=== PATIENT | female | born 1995 | race Caucasian/White ===

== ENCOUNTER 2018-03-19 11:45 | Emergency (ER) | payer BC ==
[2018-03-19 13:09] LABS: Bilirubin Negative (Negative); Blood, Urine Small (Negative); Clarity CLOUDY (Clear); Glucose, Urine (Dipstick) Negative (Negative); Leukocyte Small (Negative); Nitrite Negative (Negative); Protein, Urine (Dipstick) Negative (Neg-Trace); Specific Gravity, Urine 1.024 (1.002-1.036); pH, Urine 6.5 (5.0-9.0)
[2018-03-19 13:12] LABS: Bacteria/HPF None Seen HPF (None Seen); Hyaline Casts/LPF 4-6 HYALINE CAST LPF (0-3 Hyaline); RBC/HPF 0-3 HPF (0-3)
[2018-03-19 13:27] LABS: Renal Epithelial 0-3 HPF (0-3); Transitional Epithelial 0-3 HPF (0-3)
--- NOTE | 2018-03-19 14:27 | ULT ---
LIMITED OB ULTRASOUND: DATE: 03/19/18. HISTORY: The patient presents with vaginal pain and vaginal bleeding. Beta HCG level not available. FINDINGS: The uterus measures 9.7 cm x 4.9 cm x 6 cm. There is a fluid collection seen within the endometrial canal which contains both a pole and a yolk sac. Cardiac Doppler does demonstrate heart tones with a heart rate of 108 b.p.m. The crown-rump length measures 0.31 cm, consistent with gestational age by ultrasound of 5 weeks and 6 days. Gestational age by the last menstrual period is 7 weeks and 3 days. The ovaries demonstrate a normal sonographic appearance bilaterally. The right ovary measures 2.9 cm x 1.5 cm x 1.7 cm. With the left ovary measuring 3.3 cm x 1.8 cm x 1.9 cm. Doppler evaluation of ea ch ovary with spectral analysis and color flow evaluation demonstrates venous flow within each ovary with arterial flow seen in the left ovary. Arterial flow in the right ovary is difficult to elicit. No free fluid is seen in the cul-de-sac. IMPRESSION: Single intrauterine gestation with heart tones documented. Gestational age by measurement of t he crown-rump length is 5 weeks and 6 days. Gestational age by the last menstrual period is 7 weeks and 3 days. POS: [facility]
[2018-03-20 20:59] LABS: Chlamydia by PCR Not Detected (NotDetected); GC by PCR DETECTED (NotDetected)
== END 2018-03-19 14:35 | disposition home or self-care (01) ==
LOC: ERS 11:45
DX: O20.0 Threatened abortion (principal); O23.591 Infection of other part of genital tract in pregnancy, first trimester
CPT/HCPCS: 36415; 76815; 81003; 81015; 84702; 86900; 86901; 87086; 87480; 87491; 87510; 87591; 87660

== ENCOUNTER 2018-03-21 16:31 | Emergency (ER) | payer BC ==
[2018-03-21] MEDS ORDERED: cefTRIAXone\\ROCEPHIN 250 MG VIAL ONE (19:12)
[2018-03-21] MEDS ORDERED: Lidocaine 1% PF 5 ML VIAL ONE (19:13)
[2018-03-21] MEDS ORDERED: Azithromycin 250 MG TAB ONE (19:16)
[2018-03-21 19:34] LABS: #Eosinphils 0.1 thou/uL (0.0-0.7); #Lymphocytes 1.6 thou/uL (1.20-3.40); #Monocytes 0.4 thou/uL (0.11-0.59); #Neutrophils 4.8 thou/uL (1.40-6.50); %Basophils 0.4 % (0.0-1.0); %Eosinophils 1.1 % (0.0-10.0); %Lymphocytes 23.6 % (21.0-51.0); %Neutrophils 68.8 % (42.0-75.0); Hemoglobin 11.2 g/dL (12.0-16.0); Mean Corpuscular HGB CONC 32.3 g/dL (32.0-36.0); Mean Corpuscular Hemoglobin 25.8 pg (27.0-31.0); Mean Corpuscular Volume 79.9 fL (78.0-98.0); Mean Platelet Volume 7.4 fL (7.4-10.4); Platelet Count 203 thou/uL (130-400); RBC Distribution Width 14.2 % (11.5-14.5); Red Blood Cell (RBC) Count 4.36 mill/uL (4.20-5.40); White Blood Cell (WBC) Count 6.9 thou/uL (4.8-10.8)
--- NOTE | 2018-03-21 21:33 | ULT ---
ULTRASOUND PELVIC ULTRASOUND TRANSVAGINAL DOPPLER DUPLEX: 03/21/2018 8:46 p.m. HISTORY: First trimester vaginal bleeding in a 23-year-old female. COMPARISON: 03/19/2018 TECHNIQUE: Transabdominal transducer used to evaluate intrapelvic contents using the urinary bladder as an acous tic window. Endovaginal transducer used to visualize intrapelvic contents in greater detail. Color fl ow Doppler and Pulsed Doppler spectral waveform analysis of ovaries. FINDINGS: Again noted is the intrauterine gestational sac, containing the embryonic pole. [place]-rump length is 0.7 cm, corresponding to 6W 4D gestational age. Whereas previously heart activity was detected, there is no heart activity detected on th e current ultrasound. No evidence of subchorionic hemorrhage. No free fluid in the cul-de-sac. Jayme ateral ovaries are normal in size with demonstration of blood flow by Doppler. IMPRESSION: First trimester intrauterine demise. ROSY [place] POS: [facility]
== END 2018-03-21 21:42 | disposition home or self-care (01) ==
LOC: ERS 16:31
DX: O02.1 Missed abortion (principal); B96.89 Other specified bacterial agents as the cause of diseases classified elsewhere
CPT/HCPCS: 36415; 76856; 84702; 85025; 96372; J0696; J2001

== ENCOUNTER 2018-05-16 10:19 | Emergency (ER) | payer BC, OTHER ==
[2018-05-16 10:54] LABS: Bilirubin Negative (Negative); Blood, Urine Negative (Negative); Clarity CLEAR (Clear); Glucose, Urine (Dipstick) Negative (Negative); Leukocyte Small (Negative); Nitrite Negative (Negative); Protein, Urine (Dipstick) Negative (Neg-Trace); Specific Gravity, Urine 1.016 (1.002-1.036); pH, Urine 7.5 (5.0-9.0)
[2018-05-16 10:55] LABS: Pregnancy Test - Urine (BHCG) POSITIVE (Negative); Pregu Control Background? CLEAR/WHITE (CLR/WHITE); Pregu Control Bar Appear? YES (CONTROL BAR); Specific Gravity 1.016 (1.002-1.036)
[2018-05-16 10:56] LABS: Bacteria/HPF None Seen HPF (None Seen); Hyaline Casts/LPF 0-3 HYALINE CAST LPF (0-3 Hyaline); Pathc Cast-AUWi Flag 0.43 (0-2.49); RBC/HPF 0-3 HPF (0-3)
--- NOTE | 2018-05-16 15:34 | ULT ---
PELVIC ULTRASOUND WITH GRAYSCALE AND DOPPLER COLORFLOW TRANSABDOMINAL IMAGING: CLINICAL HISTORY: Pelvic cramping. Pain. FINDINGS: There is evidence of a hypoechoic focus of the endometrial region, indicating a probable gestational sac, although too small for confirmation on the basis of this exam. By sonographic evaluation, this corresponds to an approximately 3-aahu-6-day gestational age, placing the expected date of delivery o f 01/12/2019. Physiologic appearing cyst of the left ovary is present. Right ovary is unremarkable. Doppler evaluation reveals flow to each ovary, with vascular waveforms elicited. There is a region of decreased echogenicity adjacent to the endometrium, which may relate to subchorionic hemorrhage. IMPRESSION: 1. Findings that may relate to an early gestational sac. pole and yolk sac are not confirmed and, therefore, correlation with serial beta hCG and short-term imaging followup is recommended. 2. Findings that may relate to subchorionic hemorrhage. This finding may be reassessed at the time of short-term followup. CODE T POS: [facility]
== END 2018-05-16 13:23 | disposition home or self-care (01) ==
LOC: ERS 10:19
DX: O99.89 Other specified diseases and conditions complicating pregnancy, childbirth and the puerperium (principal); R10.9 Unspecified abdominal pain; Z3A.01 Less than 8 weeks gestation of pregnancy
CPT/HCPCS: 36415; 76856; 81003; 81015; 81025; 84702; 93976

== ENCOUNTER 2018-08-23 16:10 | Emergency (ER) | payer BC, OTHER ==
[2018-08-23 17:22] LABS: HIV (1/2) Antibody/Antigen Non-Reactive (NonReactive); HIV 1/2 INDEX 0.07 S/CO (<1.00); Hep C IgG Ab Non-Reactive (NonReactive); Hep C Index 0.14 S/CO (0-0.79)
[2018-08-23 18:33] LABS: HBSAB Concentration 205.02 mIU/mL; Hep B Surf AB Reactive (NonReactive)
== END 2018-08-23 18:57 | disposition home or self-care (01) ==
LOC: ERS 16:10
DX: Z77.21 Contact with and (suspected) exposure to potentially hazardous body fluids (principal)
CPT/HCPCS: 36415; 86706; 86803; 87389; 99283

== ENCOUNTER 2018-10-13 07:19 | Emergency (ER) | payer BC, OTHER ==
[2018-10-13] MEDS ORDERED: Ibuprofen 200 MG TAB ONE (08:34)
== END 2018-10-13 08:27 | disposition home or self-care (01) ==
LOC: ERS 07:19
DX: S76.012A Strain of muscle, fascia and tendon of left hip, initial encounter (principal); V43.51XA Car driver injured in collision with sport utility vehicle in traffic accident, initial encounter
CPT/HCPCS: 99284

== ENCOUNTER 2019-07-17 05:07 | Emergency (ER) | payer BC, OTHER ==
[2019-07-17 06:20] LABS: HIV (1/2) Antibody/Antigen Non-Reactive (NonReactive); HIV 1/2 INDEX 0.13 S/CO (<1.00); Hep C IgG Ab Non-Reactive (NonReactive); Hep C Index 0.13 S/CO (0-0.79)
[2019-07-17 06:23] LABS: HBSAg Index 0.21 S/CO (0-0.99); Hep A IgM AB Non-Reactive (NonReactive); Hep A IgM S/CO 0.24 S/CO (0-0.79); Hep B Core Total Ab Non-Reactive (NonReactive); Hep B Core Total Index 0.09 S/CO (0-0.79); Hep B Surf Ag Non-Reactive S/CO (NonReactive); Hep C IgG Ab Non-Reactive (NonReactive); Hep C Index 0.13 S/CO (0-0.79)
[2019-07-17 06:27] LABS: HBSAB Concentration 165.26 mIU/mL; HBSAB Concentration 165.36 mIU/mL; Hep B Surf AB Reactive (NonReactive)
== END 2019-07-17 05:37 | disposition home or self-care (01) ==
LOC: ERS 05:07
DX: Z77.21 Contact with and (suspected) exposure to potentially hazardous body fluids (principal)
CPT/HCPCS: 86704; 86706; 86709; 86803; 87340; 87389; 99283

== ENCOUNTER 2020-04-26 08:37 | Emergency (ER) | payer BC, OTHER ==
[2020-04-26 09:54] LABS: HIV (1/2) Antibody/Antigen Non-Reactive (NonReactive); HIV 1/2 INDEX 0.11 S/CO (<1.00); Hep C IgG Ab Non-Reactive (NonReactive); Hep C Index 0.08 S/CO (0-0.79)
[2020-04-26 10:10] LABS: HBSAB Concentration 148.22 mIU/mL; Hep B Surf AB Reactive (NonReactive)
== END 2020-04-26 08:55 | disposition home or self-care (01) ==
LOC: ERS 08:37
DX: S61.232A Puncture wound without foreign body of right middle finger without damage to nail, initial encounter (principal); W46.1XXA Contact with contaminated hypodermic needle, initial encounter; Y99.0 Civilian activity done for income or pay
CPT/HCPCS: 36415; 86706; 86803; 87389; 99283